=== PATIENT | male | born 1955 | race Caucasian/White ===

== ENCOUNTER 2020-04-28 15:51 | Emergency (ER) | payer OTHER, MEDICAID ==
[~2020-04-28] VITALS: Ht 175.3 cm; Wt 94.3 kg
[2020-04-28 17:40] VITALS: BP 144/83
--- NOTE | 2020-04-28 18:33 | NUR ---
PT AMBULATED TO BED 07
--- NOTE | 2020-04-28 18:43 | NUR ---
64 YEAR OLD MALE COMPLAINS OF RIGHT KNEE PAIN X 6 DAYS. PT STATES HIS KNEE STARTED HURTING AFTER PAINTING FENCE. VISIBLE REDNESS, SWELLING ON RIGHT KNEE. PT AOX4, BREATHING EVEN AND UNLABORED, SKIN WARM AND DRY. BED IN LOWEST POSITION, LOCKED, BED RAIL UPX1. PMH - DENIES ALLERGIES - NKA
--- NOTE | 2020-04-28 19:28 | NUR ---
RECEIVED REPORT FROM EPHRAIM SAM
--- NOTE | 2020-04-28 19:30 | NUR ---
REPORT GIVEN TO SELENA SAM, TRANSFER OF CARE AT THIS TIME
[2020-04-28 19:34] LABS: BASOPHILS # (AUTO) 0.1 K/uL (0.00-0.22); BASOPHILS % (AUTO) 1.1 % (0.0-2.0); EOSINOPHILS # (AUTO) 0.1 K/uL (0-0.4); EOSINOPHILS % (AUTO) 0.8 % (0.0-4.0); HEMATOCRIT 40.6 % (36-52); HEMOGLOBIN 13.2 g/dL (12.0-18.0); LYMPHOCYTES # (AUTO) 1.4 K/uL (2.0-11.5); LYMPHOCYTES % (AUTO) 11.5 % (20.5-51.1); MEAN CORPUSCULAR HEMOGLOBIN 30 pg (27-31); MEAN CORPUSCULAR HGB CONC 33 g/dL (33-37); MEAN CORPUSCULAR VOLUME 92.3 fL (80-94); MONOCYTES # (AUTO) 0.9 K/uL (0.8-1.0); MONOCYTES % (AUTO) 7.7 % (1.7-9.3); NEUTROPHILS # (AUTO) 9.4 K/uL (1.8-7.7); NEUTROPHILS % (AUTO) 78.9 % (42.2-75.2); PLATELET COUNT (AUTO) 304 K/uL (140-450); RED CELL DISTRIBUTION WIDTH 14.2 % (11.6-13.7)
--- NOTE | 2020-04-28 19:58 | NUR ---
XRAY AT BEDSIDE
[2020-04-28 20:01] LABS: POTASSIUM 4.3 mmol/L (3.5-5.1)
[2020-04-28 20:02] LABS: ALBUMIN 3.2 g/dL (3.4-5.0); ANION GAP 14.2 (8-16); CARBON DIOXIDE 28.1 mmol/L (21-32); CREATININE 1.1 mg/dL (0.6-1.3); TOTAL BILIRUBIN 0.5 mg/dL (0.0-1.0)
[2020-04-28] MEDS ORDERED: CLINDAMYCIN 600 MG/4 ML VIAL IV ONE (20:40)
[2020-04-28] MEDS ORDERED: KETOROLAC 15 MG/ML VIAL IVP ONE (20:45)
--- NOTE | 2020-04-28 20:50 | NUR ---
AT BEDSIDE WITH ULTRASOUND TO RIGHT KNEE
[2020-04-28] MEDS ORDERED: LIDOCAINE/EPI 1% 1:100000 20 ML VIAL INJ ONE (20:57)
--- NOTE | 2020-04-28 21:26 | NUR ---
MD AT BEDSIDE ASPIRATING PT'S RIGHT KNEE
--- NOTE | 2020-04-28 21:56 | NUR ---
PT WOUND ON R KNEE COVERED WITH NON ADHERENT DRESSING, WRAPPED WITH COFLEX AND PATT WRAP. +CSM
--- NOTE | 2020-04-28 22:00 | NUR ---
EMT AT BEDSIDE PLACING PATT WRAP TO R KNEE
[2020-04-28 22:07] VITALS: BP 130/72
== END 2020-04-28 22:05 | disposition home or self-care (01) ==
LOC: MED 15:51
DX: L03.115 Cellulitis of right lower limb (principal); Z98.890 Other specified postprocedural states
CPT/HCPCS: 36415; 73562; 80053; 83605; 85025; 87040; 96365; 96375; 99284; J1885; J2001; J3490; Q0092